=== PATIENT | female | born 1945 | race Hispanic/Latino ===

== ENCOUNTER 2016-11-30 11:19 | Day surgery (SDC) | payer MEDICARE ==
[2016-11-21 11:51] VITALS: BMI 19.8
[2016-11-30] MEDS ORDERED: Propofol 10 mg/ml Inj (20 ML) ONE (12:12)
[2016-11-30] MEDS ORDERED: Lidocaine 2% Inj (20ml) ONE (12:12)
[2016-11-30 12:21] VITALS: O2SAT 99
[2016-11-30] MEDS ORDERED: Sodium Chloride 0.9% 1,000 ML IV SCH (13:00)
[2016-11-30 13:44] VITALS: BP 145/66; PULSE 63; RESP 16; TEMP 97.6
== END 2016-11-30 14:11 | disposition home or self-care (01) ==
LOC: ENDO 11:19
PROVIDERS: ATTEND Internal Medicine Gastroenterology
DX: D50.9 Iron deficiency anemia, unspecified (principal); K57.30 Diverticulosis of large intestine without perforation or abscess without bleeding; K64.8 Other hemorrhoids; K63.9 Disease of intestine, unspecified
CPT/HCPCS: 45378; J2405; J2704; J7040 ×2

== ENCOUNTER 2018-03-09 11:39 | Observation (INO) | payer MEDICARE, OTHER ==
[2018-03-09] MEDS ORDERED: DiphenhydrAMINE 50 mg/ml Inj IVP STA (12:37)
--- NOTE | 2018-03-09 12:55 | ED PDOC ---
Arrival/HPI - General Chief Complaint: Chest Pain Time Seen by Provider: 03/09/18 12:00 Historian: Patient - History of Present Illness Narrative History of Present Illness (Text): 03/09/18 12:51 72 year old female smoker, whose past medical history includes hyperlipidemia, hypothyroidism, tonsilar carcinoma, and a ?aortic aneurysm, who presents to the emergency department complaining of left sided chest pain and left shoulder pain that radiates to the arm x 1 day. Patient states she has been under a lot of stress lately. Patient denies any fevers, chills, shortness of breath, abdominal pain, nausea, vomiting, diarrhea, back pain, neck pain, headache, dizziness, or any other complaint. PMD: Dr. Epstein Track Laying Equipment Operator: Dr. Wharton ([place]) Time/Duration: Other (1 day) Symptom Onset: Gradual Symptom Course: Unchanged Activities at Onset: Light Context: Home Past Medical History - Provider Review Nursing Documentation Reviewed: Yes - Cardiac Hx Cardiac Disorders: Yes - Pulmonary Hx Respiratory Disorders: Yes Other/Comment: SMOKER - Neurological Hx Neurological Disorder: No - HEENT Hx HEENT Disorder: Yes Other/Comment: CA - Renal Hx Renal Disorder: No - Endocrine/Metabolic Hx Endocrine Disorders: Yes Hx Hypothyroidism: Yes - Hematological/Oncological Hx Blood Disorders: Yes Hx Anemia: Yes Hx Cancer: Yes - Integumentary Hx Dermatological Disorder: No - Musculoskeletal/Rheumatological Hx Musculoskeletal Disorders: Yes - Gastrointestinal Hx Gastrointestinal Disorders: Yes Other/Comment: AAA - Genitourinary/Gynecological Hx Genitourinary Disorders: No - Psychiatric Hx Psychophysiologic Disorder: Yes Hx Anxiety: Yes Hx Substance Use: Yes (MANY YRS AGO) - Anesthesia Hx Anesthesia Reactions: No Hx Malignant Hyperthermia: No - Suicidal Assessment Feels Threatened In Home Enviroment: No Family/Social History - Physician Review Nursing Documentation Reviewed: Yes Family/Social History: Unknown Family HX Smoking Status: Heavy Smoker > 10 Cigarettes Daily Hx Alcohol Use: No ([id number] AGO) Hx Substance Use: Yes (MANY YRS AGO) Allergies/Home Meds Allergies/Adverse Reactions: Allergies CONTRAST MEDIA, IODINE RELATED Allergy (Severe, Uncoded 03/09/18 12:49) SHORTNESS OF BREATH Home Medications: Home Meds Medication Instructions Recorded Confirmed Cholecalciferol [Vitamin D] 2,000 iu PO DAILY 11/21/16 03/09/18 Clopidogrel [Plavix] 75 mg PO DAILY 11/21/16 03/09/18 Ferrous Sulfate [Feosol] 325 mg PO BID 11/21/16 03/09/18 Levothyroxine [Synthroid] 88 mcg PO DAILY 11/21/16 03/09/18 Lorazepam [Ativan] 0.5 mg PO DAILY PRN 11/21/16 03/09/18 Simvastatin [Zocor] 20 mg PO DAILY 11/21/16 03/09/18 Review of Systems - Physician Review All systems were reviewed & negative as marked: Yes - Review of Systems Constitutional: Normal Eyes: Normal ENT: Normal Respiratory: Normal. absent: SOB, Cough Cardiovascular: Chest Pain Gastrointestinal: Normal. absent: Abdominal Pain Genitourinary Female: Normal. absent: Dysuria, Frequency, Hematuria Musculoskeletal: Other (left shoulder pain that radiates down the arm). absent: Back Pain, Neck Pain Skin: Normal. absent: Rash Neurological: Normal. absent: Headache, Dizziness Endocrine: Normal Hemo/Lymphatic: Normal Psychiatric: Normal Physical Exam Vital Signs Reviewed: Yes Temperature: Afebrile Blood Pressure: Normal Pulse: Regular Respiratory Rate: Normal Appearance: Positive for: Well-Appearing, Non-Toxic, Comfortable Pain Distress: None Mental Status: Positive for: Alert and Oriented X 3 - Systems Exam Head: Present: Atraumatic, Normocephalic Pupils: Present: PERRL Extroacular Muscles: Present: EOMI Conjunctiva: Present: Normal Mouth: Present: Moist Mucous Membranes Neck: Present: Normal Range of Motion Respiratory/Chest: Present: Clear to Auscultation, Good Air Exchange. No: Respiratory Distress, Accessory Muscle Use Cardiovascular: Present: Regular Rate and Rhythm, Normal S1, S2. No: Murmurs Abdomen: No: Tenderness, Distention, Peritoneal Signs Back: Present: Normal Inspection Upper Extremity: Present: Normal Inspection. No: Cyanosis, Edema Lower Extremity: Present: Normal Inspection. No: Edema Neurological: Present: GCS=15, CN II-XII Intact, Speech Normal Skin: Present: Warm, Dry, Normal Color. No: Rashes Psychiatric: Present: Alert, Oriented x 3, Normal Insight, Normal Concentration Medical Decision Making ED Course and Treatment: 03/09/18 12:58 Impression: 72 year old female presents to the emergency department complaining of chest pain and left shoulder pain that radiates to the left arm. Differential Diagnosis included but are not limited to: Chest pain r/u ACS vs Aortic Aneurysm vs. Aaortic dissection vs PE Plan: -- CT angio -- EKG -- Labs -- Caridac ISO -- D Dimer -- CXR -- Benadryl -- SOLU-Medrol -- UA -- Reassess and disposition Progress Notes: EKG reviewed, shows NSR at 65 bpm. 03/09/18 13:25 CXR reviewed, shows: Impression: No active diseases 03/09/18 14:50 CT angio chest,abdomen, pelvis reviewed, shows: IMPRESSION: No evidence of aortic dissection or pulmonary embolus. No acute intrathoracic or intra-abdominal findings. 03/09/18 15:04 Low grade temp noted with elevated WBC at 14. CXR normal. CT chest negative. UA pending. Patient does not have a new cough. She says she has chornic cough. Possible viral cause. Case discussed with Dr. Fraire who requested Dr. Ayala for cardiology. He will f/u with the leukocytosis 03/09/18 15:[address] Stepan Epstein, pt will be admitted to telemetry to r/o ACS. - RAD Interpretation Radiology Orders: 03/09/18 12:37 CHEST PORTABLE [RAD] Stat 03/09/18 12:41 ANGIOGRAPHY DISECTION PROTOCOL [CT] Stat - Medication Orders Current Medication Orders: Discontinued Medications Diphenhydramine HCl (Benadryl) 50 mg IVP STAT STA Stop: 03/09/18 12:38 Methylprednisolone (Solu-Medrol) 125 mg IVP STAT STA Stop: 03/09/18 12:38 - Scribe Statement The provider has reviewed the documentation as recorded by the Scriblorelei Chang All medical record entries made by the Scriblorelei were at my direction and personally dictated by me. I have reviewed the chart and agree that the record accurately reflects my personal performance of the history, physical exam, medical decision making, and the department course for this patient. I have also personally directed, reviewed, and agree with the discharge instructions and disposition. Disposition/Present on Arrival - Present on Arrival Any Indicators Present on Arrival: No History of DVT/PE: No History of Uncontrolled Diabetes: No Urinary Catheter: No History of Decub. Ulcer: No History Surgical Site Infection Following: None - Disposition Have Diagnosis and Disposition been Completed?: Yes Diagnosis: Chest pain Disposition Time: 15:05 Patient Plan: Observation Patient Problems: Current Active Problems Problem Status Onset Chest pain Acute Condition: FAIR
--- NOTE | 2018-03-09 13:19 | RAD ---
Date of service: 03/09/2018 HISTORY: chest pain COMPARISON: No prior. FINDINGS: LUNGS: No active pulmonary disease. PLEURA: No significant pleural effusion identified, no pneumothorax apparent. CARDIOVASCULAR: Normal. OSSEOUS STRUCTURES: No significant abnormalities. VISUALIZED UPPER ABDOMEN: Normal. OTHER FINDINGS: None. IMPRESSION: No active disease.
[2018-03-09 13:29] LABS: ALB/GLOB RATIO 1.3 (1.1-1.8); ALT/SGPT 17 U/L (7-56); AST/SGOT 29 U/L (14-36); BLOOD UREA NITROGEN 12 mg/dL (7-21); CALCIUM 9.3 mg/dL (8.4-10.5); GFR NON-AFRICAN AMERICAN > 60
[2018-03-09 13:33] LABS: HEMOGLOBIN 10.9 g/dL (12.0-16.0); MEAN CELL VOLUME 83.2 fl (80.0-105.0); MEAN CORPUSCULAR HEMOGLOBIN 27.8 pg (25.0-35.0); MEAN CORPUSCULAR HGB CONC 33.4 g/dl (31.0-37.0); MEAN PLATELET VOLUME 8.9 fl (7.0-11.0); RBC 3.92 10^6/uL (3.5-6.1); RED CELL DISTRIBUTION WIDTH 15.1 % (11.5-14.5); WHITE BLOOD COUNT 14.5 10^3/ul (4.5-11.0)
[2018-03-09 13:34] LABS: BASO # 0.02 K/mm3 (0.0-2.0); BASO % 0.1 % (0.0-3.0); EOS # 0.1 (0.0-0.7); EOS % 0.3 % (1.5-5.0); GRAN # 11.98 (1.4-6.5); GRAN % 82.8 % (50.0-68.0); LYMPH # 1.4 (1.2-3.4); LYMPH % 9.4 % (22.0-35.0); MONO # 1.1 (0.1-0.6); MONO % 7.4 % (1.0-6.0)
[2018-03-09 13:39] LABS: TROPONIN I < 0.01 ng/mL
[2018-03-09 14:08] LABS: INR 1.14; PARTIAL THROMBOPLASTIN TIME 30.2 Seconds (25.1-36.5)
--- NOTE | 2018-03-09 14:22 | CT ---
PROCEDURE: CT Angiography Chest, Abdomen and Pelvis with and without intravenous contrast HISTORY: chest pain r/o dissec / aneurysm / pe COMPARISON: None. TECHNIQUE: Contiguous axial images of the chest, abdomen and pelvis were obtained in the phase of aortic enhancement. A noncontrast enhanced CT of the chest was also obtained to evaluate for possible intramural thrombus. Coronal and sagittal reformats were generated. This CT exam was performed using one or more of the following dose reduction techniques: Automated exposure control, adjustment of the mA and/or kV according to patient size, and/or use of iterative reconstruction technique. IV dose administered: 146 cc of Omni 350 Radiation dose: Total exam DLP = 380 mGy-cm. FINDINGS: CT ANGIOGRAPHY OF THE CHEST WITH & WITHOUT CONTRAST: AORTA (CHEST AND ABDOMEN): The thoracic and abdominal aorta are unremarkable, without aneurysm, dissection or rupture. No intramural thrombus identified in the thoracic aorta on the non-contrast ct of the chest. The celiac axis, superior mesenteric artery, inferior mesenteric artery and the renal arteries are widely patent. The pelvic arteries are unremarkable. LUNGS: Emphysematous changes are seen in the upper lobes. MEDIASTINUM: Unremarkable. Normal caliber aorta and pulmonary arterial trunk. No aortic dissection. Normal size heart. No evidence of pulmonary embolus LYMPH NODES: Unremarkable. PLEURA: Unremarkable. No pneumothorax. No pleural fluid. BONES: Unremarkable. OTHER FINDINGS: None. CT ANGIOGRAPHY OF THE ABDOMEN AND PELVIS WITH CONTRAST: LIVER: Unremarkable. No gross lesion or ductal dilatation. GALLBLADDER AND BILE DUCTS: Unremarkable. PANCREAS: Unremarkable. No gross lesion or ductal dilatation. SPLEEN: Unremarkable. ADRENALS: Unremarkable. No mass. KIDNEYS AND URETERS: Unremarkable. No hydronephrosis. No solid mass. VASCULATURE: Unremarkable. No aortic aneurysm. 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 STOMACH AND BOWEL: Unremarkable. No obstruction. No gross mural thickening. APPENDIX: Normal appendix. PERITONEUM: Unremarkable. No free fluid. No free air. LYMPH NODES: Unremarkable. No enlarged lymph nodes. BLADDER: Unremarkable. REPRODUCTIVE: Unremarkable. BONES: No acute fracture. OTHER FINDINGS: None. IMPRESSION: No evidence of aortic dissection or pulmonary embolus. No acute intrathoracic or intra-abdominal findings.
--- NOTE | 2018-03-09 16:18 | CARD ---
APPROVED REPORT Date of service: 03/09/2018 EKG Measurement Heart [id number] <Conclusion> Normal sinus rhythm Normal ECG
[2018-03-09 17:10] LABS: URINE APPEARANCE CLEAR (CLEAR); URINE BILIRUBIN NEGATIVE (NEGATIVE); URINE COLOR YELLOW (YELLOW); URINE GLUCOSE (UA) NEGATIVE (NEGATIVE)
[2018-03-09 17:11] LABS: PH,URINE 6.5 (4.7-8.0); URINE BLOOD TRACE (NEGATIVE); URINE LEUKOCYTE ESTERASE NEGATIVE Leu/uL (NEGATIVE); URINE PROTEIN NEGATIVE mg/dL (<30 mg/dL); URINE UROBILINOGEN 0.2 E.U./dL (<1 E.U./dL)
[2018-03-09 18:40] VITALS: O2SAT 93
[2018-03-09 20:49] VITALS: BMI 17.6
[2018-03-10 06:07] VITALS: RESP 20
--- NOTE | 2018-03-10 08:29 | HP ---
HISTORY OF PRESENT ILLNESS: The patient is a 72-year-old woman with a past medical history of PVD s/p LLE stent placement and hyperlipidemia who presented to [facility] ED for evaluation of a 1 day history of substernal and left-sided chest pain with radiation to her left shoulder associated with diaphoresis, nausea and dyspnea. The patient reports that she was in her usual state of health until the weekend when she was at a baby shower and spontaneously developed a substernal chest discomfort. Initially she attributed her symptoms to gas however over the course of the next several hours the pain had increased in intensity prompting her ED visit. Upon arrival to the ED she was found to be afebrile and hemodynamically stable. An initial troponin was negative. The patient underwent a CT of the chest which was unremarkable and she was subsequently admitted to the telemetry case for continued observation. PAST MEDICAL HISTORY: As per HPI, also hypothyroidism, anxiety disorder and tonsillar carcinoma s/p chemotherapy s/p radiation. PAST SURGICAL HISTORY: As per HPI, also surgical resection of tonsillar carcinoma. ALLERGIES: IV contrast. MEDICATIONS: Ativan 0.5 mg p.o. b.i.d. prn anxiety, Feosol 324 mg p.o. t.i.d., Zocor 20 mg p.o. daily, Plavix 75 mg p.o. daily and Synthroid 88 mcg p.o. daily. FAMILY HISTORY: Significant for hypertension and coronary artery disease in her mother and father. SOCIAL HISTORY: The patient reports an active [id number] smoking history and social alcohol use. She denies illicit drug abuse. REVIEW OF SYSTEMS: A 12-point review of systems is negative except as per HPI. PHYSICAL EXAMINATION: VITAL SIGNS: Temperature 97.6, pulse 58, blood pressure 103/52, respiratory rate 20, oxygen saturation 99% on 2 L nasal cannula. GENERAL: No apparent distress. HEENT: PERRL, EOMI. No scleral icterus. Mild conjunctival pallor is noted. NECK: No JVD. No bruits. LUNGS: Clear to auscultation. LUNGS: Few scattered wheeze. CARDIOVASCULAR: Regular rate and rhythm. Normal S1 and S2. ABDOMEN: Normoactive bowel sounds. Soft, nontender and nondistended. EXTREMITIES: No edema. NEUROLOGIC: Awake, alert and oriented x 3. No focal motor deficits. LABORATORY DATA: WBC 14.5 with 83% neutrophils, hemoglobin 11, hematocrit 33, platelets 367. Sodium 128, potassium 4.2, chloride 92, bicarb 26, BUN 12, creatinine 0.7, glucose 88. Troponin < 0.01. IMAGING STUDIES: 1. Chest x-ray demonstrates no active disease. 2. CT of the chest, abdomen and pelvis with and without contrast demonstrates no acute pathology. ASSESSMENT: The patient is a 72-year-old woman with a past medical history of hypothyroidism, hyperlipidemia and PVD s/p LLE stent placement who presented with a 1 day history of substernal chest pain associated with nausea, diaphoresis and dyspnea and who was admitted to rule out acute coronary syndrome. PLAN: 1. Chest pain, rule out ACS. Initial troponin and EKG are unremarkable. A repeat troponin is pending for this morning. The patient does report resolution of her chest discomfort since admission. Cardiology evaluation with Dr. Ayala is pending. 2. PVS s/p LLE stent. Resume Lipitor 20 mg p.o. daily and Plavix 75 mg p.o. daily. 3. Hypothyroidism. Resume Synthroid 88 mcg p.o. daily. 4. COPD. We will start DuoNebs every 4 hours as needed. 5. Anxiety disorder. We will resume Ativan as needed. 6. Anemia of chronic disease. Labs demonstrate Hb at baseline. She will resume Feosol on discharge. 7. History of tonsillar carcinoma s/p surgical resection. The patient to resume followup with her oncologist upon discharge. 8. Prophylaxis. GI prophylaxis is not indicated as the patient is eating. DVT prophylaxis is not indicated as the patient is ambulatory. CODE STATUS: Full code. Gus Fraire MD MTDD
[2018-03-10 09:30] LABS: GRAN # 10.86 (1.4-6.5); GRAN % 90.3 % (50.0-68.0); HEMOGLOBIN 11.1 g/dL (12.0-16.0); LYMPH % 8.2 % (22.0-35.0); MEAN CORPUSCULAR HEMOGLOBIN 27.3 pg (25.0-35.0); MEAN CORPUSCULAR HGB CONC 32.9 g/dl (31.0-37.0); MEAN PLATELET VOLUME 8.5 fl (7.0-11.0); MONO # 0.2 (0.1-0.6); MONO % 1.5 % (1.0-6.0); PLATELET COUNT 375 10^3/uL (120.0-450.0); RBC 4.06 10^6/uL (3.5-6.1)
[2018-03-10 09:46] LABS: ALB/GLOB RATIO 1.2 (1.1-1.8); ALT/SGPT 12 U/L (7-56); AST/SGOT 26 U/L (14-36); BLOOD UREA NITROGEN 20 mg/dL (7-21); CALCIUM 9.8 mg/dL (8.4-10.5); GFR NON-AFRICAN AMERICAN > 60
[2018-03-10 09:53] LABS: TROPONIN I < 0.01 ng/mL
[2018-03-10 10:19] LABS: LYMPHOCYTE 10 % (22.0-35.0); MONOCYTE 2 % (1.0-6.0); NEUTROPHIL 88 % (50.0-70.0); PLATELET ESTIMATE NORMAL (NORMAL)
[2018-03-10] MEDS: Albuterol-Ipratrop 3 mg / 0.5 (3 ml) UD IH SCH ×2 (11:08→15:07)
[2018-03-10 13:10] VITALS: BP 104/54; PULSE 61; TEMP 98.4
[2018-03-10] MEDS ORDERED: Influenza Vaccine 60 mcg/0.5 mL SYR (4YR UP) IM ONE (13:44)
--- NOTE | 2018-03-10 17:16 | CON ---
DATE: 03/10/2018 CARDIOLOGY CONSULTATION HISTORY: The patient is a 72-year-old woman, who presented with 1 episode of sudden substernal focal chest pressure, which increased with inspiration. She also complains of occasional discomfort in the back of her neck. All these symptoms have since resolved. The patient has no previous cardiac history. She does suffer from peripheral vascular disease, in which she has had stenting done before. She suffers from hypercholesterolemia as well as COPD. SOCIAL HISTORY: The patient is an active smoker. REVIEW OF SYSTEMS: Fourteen-point review of systems is reviewed in detail. No cardiac symptomatology is noted. The patient is ambulating without symptoms now. PHYSICAL EXAMINATION: VITAL SIGNS: Blood pressure is 103/52, the heart rate is in the 60s, normal sinus rhythm. NECK: Negative JVD. LUNGS: Bilateral rhonchi. HEART: Reveals S1, S2. EXTREMITIES: Without edema. LABORATORY DATA: EKG shows normal sinus rhythm with no acute changes. Troponins are negative x2. Hemoglobin is 11.1. IMPRESSION: 1. Transient atypical chest pain. 2. Severe chronic obstructive pulmonary disease. 3. Hypercholesterolemia. 4. Peripheral vascular disease. 5. Anemia. PLAN: Given these findings, there is no evidence for acute coronary syndrome. I have discussed with the patient about the need to stop smoking. She will need to undergo cardiac evaluation, which we can be done as an outpatient. We will arrange for an outpatient stress test. I have discussed with the patient in detail about a smoking cessation program. Jovi Ayala MD
[2018-03-11] MEDS ORDERED: Levothyroxine 88 MCG TAB PO SCH (06:00)
--- NOTE | 2018-03-12 06:18 | DS ---
ADMITTING DIAGNOSIS: Chest pain, rule out acute coronary syndrome. DISCHARGE DIAGNOSIS: Atypical chest pain. SECONDARY DIAGNOSES: PVD s/p LLE stent placement, hyperlipidemia, hypothyroidism, COPD, anxiety disorder, anemia of chronic disease and history of tonsillar carcinoma s/p surgical resection s/p chemotherapy s/p radiation. CONSULTATIONS: Dr. Ayala (Cardiology). PROCEDURES: None. IMAGING STUDIES: 1. Chest x-ray demonstrated no active disease. 2. CT of the chest, abdomen and pelvis with and without IV contrast demonstrated no acute pathology. HISTORY OF PRESENT ILLNESS: The patient is a 72-year-old woman with a past medical history of PVD and hyperlipidemia who presented to [facility] ED for evaluation of 1 day history of substernal and left-sided chest pain with radiation to her left shoulder associated with diaphoresis, nausea and dyspnea. The patient reports that she was in her usual state of health until the weekend when she was at a baby shower and spontaneously developed the aforementioned substernal chest discomfort. Initially she attributed her symptoms to gas however over the course of next several hours, the pain had increased in intensity prompting her ED visit. Upon arrival to the ED she was found to be afebrile and hemodynamically stable. An initial EKG and troponin were also unremarkable. She was subsequently admitted to the telemetry case for continued management of chest pain. HOSPITAL COURSE: After admission to the telemetry case the patient was restarted on home medications. Cardiac enzymes were cycled for 2 sets, both of which were negative. She was evaluated by Dr. Ayala of Cardiology and recommendations were made for outpatient stress testing. Given her hemodynamic stability and resolution of her presenting symptoms, she was cleared for discharge to home. CONDITION: Good, improved. DISPOSITION: Home. DISCHARGE MEDICATIONS: Ativan 0.5 mg p.o. b.i.d. p.r.n. anxiety, Feosol 324 mg p.o. t.i.d., Zocor 20 mg p.o. daily, Plavix 75 mg p.o. daily and Synthroid 88 mcg p.o. daily. DISCHARGE INSTRUCTIONS: The patient was counseled on the need for smoking cessation. She was also advised that if she has any recurrence of her symptoms to present to her PMD or to the nearest ED immediately. FOLLOWUP: The patient to follow up with her PMD within 2 weeks of discharge. The patient to follow up with Dr. Ayala for stress testing as scheduled. Gus Fraire MD ROSE
== END 2018-03-10 15:50 | disposition home or self-care (01) ==
LOC: ED 11:39 → ERH 15:06 → 2RNO 19:17
PROVIDERS: ADMIT Internal Medicine; ATTEND Internal Medicine
DX: R07.89 Other chest pain (principal); M25.512 Pain in left shoulder; J44.9 Chronic obstructive pulmonary disease, unspecified; E78.00 Pure hypercholesterolemia, unspecified; I73.9 Peripheral vascular disease, unspecified; F17.200 Nicotine dependence, unspecified, uncomplicated; D63.8 Anemia in other chronic diseases classified elsewhere; D72.829 Elevated white blood cell count, unspecified; E78.5 Hyperlipidemia, unspecified; E03.9 Hypothyroidism, unspecified; F41.9 Anxiety disorder, unspecified; Z79.02 Long term (current) use of antithrombotics/antiplatelets; Z85.818 Personal history of malignant neoplasm of other sites of lip, oral cavity, and pharynx; Z92.21 Personal history of antineoplastic chemotherapy; Z95.820 Peripheral vascular angioplasty status with implants and grafts; Z82.49 Family history of ischemic heart disease and other diseases of the circulatory system; Z23 Encounter for immunization
CPT/HCPCS: 36415; 71045; 71275; 74175; 80053; 81001; 82550; 83615; 83735; 84484; 85025; 85378; 85610; 85730; 87086; 87181; 90471; 90674; 93005; 94640; 94760; 96374; 96375; 99285; G0378; J1200; J2930; Q9967